=== PATIENT | female | born 1950 | race Caucasian/White ===

== ENCOUNTER → 2024-01-26 09:30 | Outpatient (REF) | payer MEDICARE, OTHER, SELFPAY | LOC: HWRAD 09:30 | PROVIDERS: ATTENDING PHYSICIAN Family Medicine | DX: Z78.0 Asymptomatic menopausal state (principal); Z12.31 Encounter for screening mammogram for malignant neoplasm of breast | CPT/HCPCS: 77063; 77067; 77080 ==

== ENCOUNTER → 2024-03-18 12:35 | Outpatient (REF) | payer MEDICARE, OTHER, SELFPAY | LOC: HWRAD 12:35 | PROVIDERS: ATTENDING PHYSICIAN Nurse Practitioner Adult Health; FAMILY PHYSICIAN Family Medicine | DX: M25.511 Pain in right shoulder (principal) | CPT/HCPCS: 73030 ==

== ENCOUNTER → 2025-02-03 08:55 | Outpatient (REF) | payer MEDICARE, OTHER, SELFPAY | LOC: HWWDC 08:55 | PROVIDERS: ATTENDING PHYSICIAN Family Medicine | DX: Z12.31 Encounter for screening mammogram for malignant neoplasm of breast (principal) | CPT/HCPCS: 77063; 77067 ==